=== PATIENT | female | born 1930 | race African-American/Black ===

== ENCOUNTER 2019-12-10 18:42 | Inpatient (IN) | payer MEDICARE, BC ==
[~2019-12-10] VITALS: Ht 170.2 cm; Wt 51.7 kg
[2019-12-10] MEDS ORDERED: SODIUM CHLORIDE 0.9% 1,000 ML IV ONE (19:11)
[2019-12-10 20:55] LABS: CHLORIDE 112 mEq/L (98-107)
[2019-12-10 20:57] LABS: HEMATOCRIT. 35.8 % (36.0-48.0); HEMOGLOBIN. 11.7 g/dL (12.0-16.0); MEAN CORPUSCULAR HEMOGLOBIN 26.5 pg (28.0-32.0); MEAN CORPUSCULAR VOLUME 80.8 fL (81.0-99.0); MEAN PLATELET VOLUME 8.3 fl (7.4-10.4); PLATELET 216 x1000/uL (130-400); RED BLOOD CELL COUNT 4.43 mill/uL (4.2-5.4); RED CELL DISTRIBUTION WIDTH 18.2 % (11.6-14.6)
[2019-12-10 21:40] LABS: PLATELET ESTIMATE NORMAL
[2019-12-10] MEDS ORDERED: ASPIRIN 81MG TABLET PO SCH (22:00)
[2019-12-10] MEDS ORDERED: HYDRALAZINE 20MG/ML VIAL IV PRN (23:30)
[2019-12-10] MEDS ORDERED: DIPHENHYDRAMINE 50MG/ML VIAL IV PRN (23:30)
[2019-12-10] MEDS ORDERED: CLONIDINE 0.1MG TABLET PO PRN (23:30)
[2019-12-10] MEDS ORDERED: LORAZEPAM 2MG/ML CPJ IV PRN (23:30)
[2019-12-10] MEDS ORDERED: GUAIFENESIN 200MG/10ML SUGAR FREE UDC PO PRN (23:30)
[2019-12-10] MEDS ORDERED: HYDROCODONE/ACETAMINOPHEN 10/325MG TABLET PO PRN (23:30)
[2019-12-10] MEDS ORDERED: ONDANSETRON HCL 4MG/2ML INJ IV PRN (23:30)
[2019-12-10] MEDS ORDERED: MORPHINE SULFATE 2 MG/ML CPJ (NOT FOR IM USE) IV PRN (23:30)
[2019-12-10] MEDS ORDERED: MAGNESIUM/ALUMINUM HYDROXIDE/SIMETHICONE 30ML UDC PO PRN (23:30)
[2019-12-10] MEDS ORDERED: ACETAMINOPHEN 325MG TABLET PO PRN (23:30)
[2019-12-10] MEDS ORDERED: DOCUSATE SODIUM 100MG CAPSULE PO PRN (23:30)
[2019-12-10] MEDS ORDERED: IPRATROPIUM/ALBUTEROL 0.5-3(2.5)MG/3ML NEB HHN PRN (23:30)
[2019-12-11] VITALS: BP 133/92
[2019-12-11] MEDS ORDERED: POTA20TA82 MT (03:07)
[2019-12-11] MEDS ORDERED: CLIN300C11 MT (03:07)
[2019-12-11 04:00] VITALS: BP 130/86
[2019-12-11] MEDS: SODIUM CHLORIDE 0.9% INJ 3ML FLUSH IVF SCH ×3 (06:00→21:25)
[2019-12-11 08:00] VITALS: BP 115/25
[2019-12-11] MEDS ORDERED: ENOXAPARIN 30MG/0.3ML SYR SUBCUT SCH (09:00)
[2019-12-11] MEDS ORDERED: ENOXAPARIN 40MG/0.4ML SYR SUBCUT SCH (09:00)
[2019-12-11] MEDS ORDERED: ENOXAPARIN 60MG/0.6ML SYR SUBCUT SCH (11:00)
[2019-12-11] MEDS ORDERED: SODIUM CHLORIDE 0.9% 500 ML IV ONE (11:30)
[2019-12-11 12:00] VITALS: BP 94/50
[2019-12-11 16:00] VITALS: BP 120/62
[2019-12-11 20:00] VITALS: BP 113/62
[2019-12-11 20:03] LABS: HEMATOCRIT. 28.1 % (36.0-48.0); HEMOGLOBIN. 9.3 g/dL (12.0-16.0); MEAN CORPUSCULAR HEMOGLOBIN 26.2 pg (28.0-32.0); MEAN CORPUSCULAR VOLUME 79.1 fL (81.0-99.0); MEAN PLATELET VOLUME 8.4 fl (7.4-10.4); PLATELET 200 x1000/uL (130-400); RED BLOOD CELL COUNT 3.55 mill/uL (4.2-5.4); RED CELL DISTRIBUTION WIDTH 18.2 % (11.6-14.6)
[2019-12-11 20:13] LABS: D-DIMER 4.36 mg/L FEU (<0.50); INR 1.1
[2019-12-11 20:25] LABS: PLATELET ESTIMATE NORMAL
[2019-12-11 20:32] LABS: CHLORIDE 115 mEq/L (98-107)
[2019-12-11 20:41] LABS: CREATINE KINASE 69 IU/L (26-192)
[2019-12-11 20:44] LABS: CREATINE KINASE MB FRACTION 3.5 ng/mL (0.5-3.6); T4 FREE 1.29 ng/dL (0.76-1.46)
[2019-12-12] VITALS (7 sets, daily range): BP systolic 107–131; BP diastolic 52–82
[2019-12-12] MEDS: SODIUM CHLORIDE 0.9% INJ 3ML FLUSH IVF SCH ×2 (07:06→21:39)
[2019-12-12] MEDS: ENOXAPARIN 60MG/0.6ML SYR SUBCUT SCH (09:01)
[2019-12-12] MEDS ORDERED: POTASSIUM CHLORIDE 20MEQ TABLET SR PO NR (10:00)
[2019-12-13] VITALS: BP 124/65
[2019-12-13 04:00] VITALS: BP 107/54
[2019-12-13] MEDS: SODIUM CHLORIDE 0.9% INJ 3ML FLUSH IVF SCH ×2 (06:03→14:48)
[2019-12-13 08:00] VITALS: BP 102/68
[2019-12-13] MEDS: ENOXAPARIN 60MG/0.6ML SYR SUBCUT SCH (08:33)
[2019-12-13 11:50] LABS: HEMATOCRIT 34.4 % (36.0-48.0); HEMOGLOBIN 11.3 g/dL (12.0-16.0); MEAN CORPUSCULAR HEMOGLOBIN 26.3 pg (28.0-32.0); PLATELET 201 x1000/uL (130-400); RED CELL DISTRIBUTION WIDTH 18.1 % (11.6-14.6)
[2019-12-13 12:00] VITALS: BP 100/68
[2019-12-13 15:09] VITALS: BP 99/50
[2019-12-13 16:00] VITALS: BP 90/49
== END 2019-12-13 17:45 | disposition home health service (06) | DRG 73 ==
LOC: ER 18:42 → 7WST 23:06 → EDBEDREQ 23:09 → EDBEDREQTM 23:09 → ENRESERV 23:28
PROVIDERS: ADMIT Internal Medicine; ATTEND Internal Medicine
PROC: 4B02XTZ Measurement of Cardiac Defibrillator, External Approach (ICD-10-PCS; principal; 2019-12-12)
PROC: 4A10X4Z Monitoring of Central Nervous Electrical Activity, External Approach (ICD-10-PCS; 2019-12-12)
DX: G90.8 Other disorders of autonomic nervous system (principal); E43 Unspecified severe protein-calorie malnutrition; I50.23 Acute on chronic systolic (congestive) heart failure; I82.411 Acute embolism and thrombosis of right femoral vein; Z68.1 Body mass index [BMI] 19.9 or less, adult; I11.0 Hypertensive heart disease with heart failure; I10 Essential (primary) hypertension; I25.10 Atherosclerotic heart disease of native coronary artery without angina pectoris; J44.9 Chronic obstructive pulmonary disease, unspecified; D64.9 Anemia, unspecified; E86.0 Dehydration; E87.8 Other disorders of electrolyte and fluid balance, not elsewhere classified; Z86.73 Personal history of transient ischemic attack (TIA), and cerebral infarction without residual deficits; Z86.74 Personal history of sudden cardiac arrest; Z95.810 Presence of automatic (implantable) cardiac defibrillator; Z99.3 Dependence on wheelchair; Z88.0 Allergy status to penicillin; Z74.01 Bed confinement status
CPT/HCPCS: 36415; 71045; 80053; 80061; 82550; 82553; 83036; 83880; 84439; 84443; 84484; 85025; 85027; 85379; 93005; 93308; 93880; 93970; 95816; 97162; 97166; 97530; 97535; 99285; J1650; J7030